=== PATIENT | male | born 1995 | race Caucasian/White ===

== ENCOUNTER 2017-02-01 06:25 | Day surgery (SDC) | payer OTHER ==
[2017-02-01] MEDS ORDERED: LACTATED RINGERS 1,000 ML IV ONE ×2 (06:31→11:23)
[2017-02-01] MEDS ORDERED: ceFAZolin 2 GM/50 ML 2 GM/50 ML BAG IV ONE (06:35)
[2017-02-01] MEDS ORDERED: BUPIVACAINE 0.25% PF 30 ML VIAL SUBQ ONE ×2 (08:22)
[2017-02-01] MEDS ORDERED: fentaNYL 100 MCG/2 ML VIAL IVP ONE (08:30)
[2017-02-01] MEDS ORDERED: ONDANSETRON 4 MG/2 ML VIAL IVP ONE (08:30)
[2017-02-01] MEDS ORDERED: PROPOFOL 200 MG/20 ML VIAL IVP ONE (08:30)
[2017-02-01] MEDS ORDERED: LIDOCAINE-MPF 2% 5 ML VIAL IM ONE (08:30)
[2017-02-01] MEDS ORDERED: MORPHINE 10 MG/ML VIAL IVP ONE (08:30)
[2017-02-01] MEDS ORDERED: ROCURONIUM 50 MG/5 ML VIAL IVP ONE (08:30)
[2017-02-01] MEDS: HYDROmorphone 1 MG/ML SYRINGE ONE ×2 (11:13→11:27)
[2017-02-01] MEDS ORDERED: KETOROLAC 15 MG/ML VIAL ONE (11:21)
--- NOTE | 2017-02-01 11:56 | XRAY Report ---
TWO-VIEW RIGHT KNEE: 02/01/2017 CLINICAL INDICATION: Post-op. FINDINGS: Frontal and lateral views of the right knee demonstrate postoperative changes of ACL repla cement, with retention button along the lateral femoral condyle. Subcutaneous gas is noted. There i s no evidence of acute fracture. IMPRESSION: POSTOPERATIVE CHANGES OF RIGHT ACL REPLACEMENT. JOB #: [id number] EXT JOB #:[id number]
[2017-02-01] MEDS ORDERED: oxyCODONE 5 MG TABLET ONE (12:07)
[2017-02-01 12:31] VITALS: BP 128/68
--- NOTE | 2017-02-01 12:53 | OPERATIVE REPORT ---
DATE OF SURGERY: 02/01/2017 00:00:00 PREOPERATIVE DIAGNOSES 1. Right anterior cruciate ligament tear. 2. Potential right lateral root tear. POSTOPERATIVE DIAGNOSES 1. Right anterior cruciate ligament tear. 2. Medial plica. NAME OF PROCEDURES 1. Right anterior cruciate ligament reconstruction with hamstring autograft, CPT 42104. 2. Right medial plica excision. SURGEON: Andrez Savage MD DRAPERY ROD ASSEMBLER: None. POSTOPERATIVE PLAN 1. Nonweightbearing in brace for 2 weeks. 2. Weeks 2-6; weightbearing as tolerated with the knee in full extension in the brace. Unlocked for ROM exercises 3. Weeks 6-12; Brace may be removed. WBAT without brace. Full ROM should be achieved. Start strengthening 4. 3-4 Months; Full strength should be achieved. 5. 4 Month; anticipate return to straight line running. 6. 6 months; return to dynamic exercises. 7. 9 months; return to competitive sports. INDICATIONS FOR SURGERY: This is a 21-year-old male who sustained a right ACL injury when he was snowboarding in April 2016. He has done physical therapy and rehabilitation of the knee quite well to the point that his range of motion is 0-135 degrees and his quadriceps has no atrophy. Throughout his normal daily life, he does have instability episodes that are painless, making it difficult for him to do daily activities as well as participate in any sports and participate fully at work. Risks, benefits, alternatives of surgery were discussed with the patient. Risks include pain, bleeding, infection, damage to nearby structures, lack of symptom relief, need for further procedures, as well as anesthetic risks. We specifically discussed the different graft options to include autograft and allograft. Given his young age, I have recommended autograft. I offered him a patellar tendon graft as well as hamstring graft. The patient spends a significant amount of time kneeling in his job. He, therefore, opted for the hamstring graft. EXAMINATION UNDER ANESTHESIA 1. Range of motion 0-135, no effusion present. 2. 2B Fredi, grade 2 pivot shift. 3. Stable to varus and valgus stressing at 0 and 30 degrees. 4. Negative posterior sag, negative posterior drawer. 5. Negative dial at 30 and 90 degrees. SURGICAL FINDINGS: On diagnostic arthroscopy, patellofemoral joint showed a medial plica making visualization difficult. This was excised with a sucker shaver. There were no cartilage lesions in the patellofemoral joint. Medial hemijoint showed meniscus was intact. The medial plateau cartilage was intact. Medial femoral condyle was intact. Lateral hemijoint showed the lateral root to be intact. This was probed extensively given the MRI characteristics that were seen, and pictures were taken showing good insertion. There was usual mobility of the lateral meniscus as well without any tears. The lateral femoral condyle was intact. Lateral tibial plateau was intact. The notch showed a complete tear off the lateral wall of the ACL. Some of the fibers had scarred down to the PCL. IMPLANTS 1. Arthrex TightRope. 2. Arthrex GraftBolt, size 9. ANESTHESIA: General. ANTIBIOTICS: Weight-based Ancef. ESTIMATED BLOOD LOSS: 25 mL. URINE OUTPUT: Not recorded. INTRAVENOUS FLUIDS: 1 liter. TOURNIQUET: 125 minutes at 250 mmHg. SPECIMENS: None. COMPLICATIONS: None. DISPOSITION: Stable to PACU. DEEP VENOUS THROMBOSIS PROPHYLAXIS 1. SCDs while in the hospital. 2. Early frequent ambulation. 3. GUILHERME hose for 2 weeks. 4. Aspirin 325 mg for 4 weeks. DESCRIPTION OF PROCEDURE: The patient was met in the preop holding area the day of the procedure. Operative site was signed, consent was verified, he desired to proceed. He was brought to the operating room and surrendered to anesthesia. Once general anesthesia had been obtained, he was placed in the supine position and all bony prominences were well-padded. A lateral post was placed. A well- padded tourniquet was placed. An examination under anesthesia was performed with the findings as above. He was then prepped and draped in the standard sterile fashion. A surgical timeout was held and we confirmed the patient's identity, procedure, allergies, antibiotics and images, and all were in agreement and we proceeded. Esmarch was used to exsanguinate the limb and the tourniquet was elevated. A 4 cm incision was made 1 cm medial to and distal to the tibial tubercle overlying the pes anserine tendons. Sharp dissection was brought down to the tendons and they were cleared from all overlying tissue with a Ray-Arlene. Identified the top border of the gracilis tendon and made a partial thickness incision in line with that 5 mm proximal to it. I then made a full-thickness incision with electrocautery down to bone, releasing the pes anserine. Inadvertently, a small portion of the MCL was elevated as well. This was later repaired. I then identified the gracilis and semitendinosus on the underside of the sartorial fascia. They were from the sartorial fascia with a right angle and isolated. They were then released from their insertion site, whipstitched with a #2 suture, and then freed from all fascial bands up to the hiatus. I then used the small closed tendon stripper for the gracilis and obtained the graft without issue and then repeated that with the larger tendon stripper for the semitendinosis. Both grafts were adequate, and they were brought to the back table and prepped. A wet Ray-Arlene was placed over the wound, after prepping the grafts and removing all muscle and suture, then adequately placed them on tension at 20 pounds for 45 minutes. We then returned to the knee and started diagnostic arthroscopy through standard anterolateral and anteromedial incisions. The anteromedial incision was made through direct visualization. The findings of the diagnostic arthroscopy can be found above. I then prepped the lateral wall by removing all remnant tissue with the radiofrequency ablation wand as well as a sucker shaver, and then debrided the remaining fibers of the ACL, which is scarred down to the PCL. The anatomic insertion site on the lateral wall as well as the medial tibia were identified and marked with the radiofrequency ablation wand. I visualized my preparation through the anteromedial portal site insuring that it was all the way to the back wall. I then brought in the femoral guide, which was set to 110 degrees, and placed it in the [id number] position, ensuring an adequate back wall and that we were low but not on the articular margin. Satisfied with this, a lateral incision was made. A sen rake retracted the IT band and the bullet was brought down to bone. I then drilled with the #8 flip cutter and the guide pin was found to come in higher than anticipated. Unsatisfied with this, I then removed the guide pin and changed my trajectory and drilled again, and found that I entered in at the same point at the joint. I then removed the guide and the guide pin, readjusted the guide to 105 degrees, replaced it a little more distal and created a new incision in the IT band laterally. With this more posterior start point, I was able to bring the pin in, in the center of my guide , and was satisfied with this position. The flip cutter was then flipped and the lateral wall was scored. I found I had a 2 mm back wall and it was 2 mm off the distal articular margin. I then measured and drilled the lateral wall to 25 mm and placed a fiber stick and passed the sutures out the lateral portal. I then went to the preparation of the tibia and drilling the tibial tunnel. I placed the center of the guide in line with and at the posterior border of the anterior horn lateral meniscus just anterior to the PCL and lateral aspect of the medial eminence. The tibia measured 50 mm. I then drilled the guide pin in and found that it came out more anterior than I had anticipated. I, therefore, placed a parallel guide on this guide pin and directed it 2 mm more posterior. The second guide pin was in an acceptable position. I, therefore, removed the first guide pin, placed a German on the second guide pin, and drilled an 8 mm hole into the tibia. I then used a sucker shaver to remove all bony debris and soft tissue from the intraarticular and superficial apertures of the tunnel. The sutures were then passed down into the tibial tunnel. TightRope was placed into the graft, and it was brought back to the field. The sutures were passed and the button was pulled out and visualized external to the IT band. I then directed it down through the IT band and on to the lateral wall under direct visualization. So at this point, the benjamin that I had placed on the sutures were exactly at 40, which is what I had previously measured, and there was a firm endpoint with no balance. I then advanced the graft through the tibia and up into the femur until 25 mm were buried into the femur. Satisfied with this, I extended the knee completely ensuring that there was no notch impingement and that the knee could get to full extension. I then placed the leg back on the table, a bump was placed under the distal femur, fredi was applied, and tension was pulled on the graft. The GraftBolt was dilated up to a 9, and a size 9 GraftBolt was placed. This restored the Fredi to 1A. I then brought the arthroscope back into the knee joint, ensuring there were no implants within the knee and took final images. The wounds were then irrigated copiously. I tied a knot over the TightRope with 6 reverse half hitches alternating posts. The IT band was then closed with 0 Vicryl. Both incisions were closed. I then repaired the portion of the MCL that had been elevated back to its anatomic footprint. I also repaired the sartorial fascia in one nice sheet. 0 Vicryl was placed in the deep tissue, 2-0 Vicryl was placed into the dermis, and running Monocryl was under the skin. Once all incisions were closed, 20 mL of 0.25% Marcaine without epinephrine were instilled about the wounds, and a sterile dressing was applied after Steri-Strips were placed. A GUILHERME hose was put on. The patient was awakened and transferred to the recovery room without issue. JOB #: [id number] EXT JOB #:[id number] MTDD
[2017-02-01] MEDS ORDERED: ONDANSETRON 4 MG/2 ML VIAL ONE (13:02)
== END 2017-02-01 06:26 | disposition home or self-care (01) ==
LOC: SDS 06:25
PROVIDERS: ATTEND Orthopaedic Surgery
PROC: 0SBC4ZZ Excision of Right Knee Joint, Percutaneous Endoscopic Approach (ICD-10-PCS; 2017-02-01)
PROC: 0MRN47Z Replacement of Right Knee Bursa and Ligament with Autologous Tissue Substitute, Percutaneous Endoscopic Approach (ICD-10-PCS; principal; 2017-02-01 07:30)
DX: S83.511A Sprain of anterior cruciate ligament of right knee, initial encounter (principal); M67.51 Plica syndrome, right knee
CPT/HCPCS: 29888; 73560; A9270; C1713; J0690; J1170; J7120